=== PATIENT | female | born 1975 ===

== ENCOUNTER 2019-03-13 06:17 | Day surgery (SDC) | payer OTHER ==
[2019-03-13] MEDS ORDERED: DOXYCYCLINE HY100 M3 PO (14:40)
[2019-03-13] MEDS ORDERED: tylenol #3 RECTAL (14:40)
== END 2019-03-13 15:40 | disposition home or self-care (01) ==
LOC: CIR.AMB 06:17
DX: N84.0 Polyp of corpus uteri (principal); D25.0 Submucous leiomyoma of uterus